=== PATIENT | male | born 1940 | race Caucasian/White ===

== ENCOUNTER → 2020-04-02 | Outpatient (CLI) | payer OTHER | END | disposition home or self-care (01) | LOC: PLD 08:57 → LAB SHORT 08:57 | DX: D22.5 Melanocytic nevi of trunk (principal) | CPT/HCPCS: 88305 ==

== ENCOUNTER 2020-11-24 09:03 | Inpatient (IN) | payer OTHER ==
[~2020-11-24] VITALS: Ht 177.8 cm; Wt 103.6 kg
[2020-11-24] MEDS ORDERED: Amaryl1 MG (09:21)
[2020-11-24] MEDS ORDERED: ENAL10 (09:21)
[2020-11-24] MEDS ORDERED: METF500 (09:21)
[2020-11-24 09:52] LABS: Alanine Aminotransfer (ALT/SGP 37 U/L (12-78); Albumin, Blood 3.7 g/dL (3.4-5.0); Albumin/Globulin Ratio 1.1 (0.8-1.8); Alk Phos 54 U/L (50-136); Anion Gap 7 mmol/L (6-16); Aspartate Aminotrans (AST/SGOT 25 U/L (12-37); BASOPHILS ABSOLUTE AUTO 0.05 K/mm3 (0.00-0.23); BASOPHILS PERCENT AUTO 1 % (0-2); Bilirubin, Total 0.5 mg/dL (0.1-1.0); Blood Urea Nitrogen 16 mg/dL (8-24); Bun/Creatinine Ratio 15.2 (12.0-20.0); CO2, Blood 23 mmol/L (21-32); Calcium, Blood 9.2 mg/dL (8.5-10.1); Chloride, Blood 108 mmol/L (98-108); Creatinine, Blood 1.05 mg/dL (0.60-1.20); EOSINOPHILS ABSOLUTE AUTO 0.06 K/mm3 (0.00-0.68); EOSINOPHILS PERCENT AUTO 1 % (0-6); Globulin, Blood 3.5 g/dL (2.2-4.0); Glomerular Filtration Rate >60 (60-); Glucose, Blood 182 mg/dL (70-99); Hematocrit 43.8 % (37.0-53.0); Hemoglobin 14.8 g/dL (13.5-17.5); IMMATURE GRAN ABSOLUTE AUTO 0.03 K/mm3 (0.00-0.10); IMMATURE GRAN PERCENT AUTO 0 % (0-1); LYMPHOCYTES ABSOLUTE AUTO 1.17 K/mm3 (0.84-5.20); LYMPHOCYTES PERCENT AUTO 12 % (21-46); MONOCYTES ABSOLUTE AUTO 0.83 K/mm3 (0.16-1.47); MONOCYTES PERCENT AUTO 9 % (4-13); Magnesium, Blood 1.2 mg/dL (1.6-2.4); Mean Corpuscular HGB 31.7 pg (26.0-34.0); Mean Corpuscular HGB Conc 33.8 g/dL (31.5-36.5); Mean Corpuscular Volume 94 fL (80-100); Mean Platelet Volume 10.9 fL (9.1-12.4); NEUTROPHILS ABSOLUTE AUTO 7.38 K/mm3 (1.96-9.15); NEUTROPHILS PERCENT AUTO 78 % (41-73); Platelet Count 140 K/mm3 (150-400); RDW Coefficient Variation 12.6 % (11.7-14.2); RDW Standard Deviation 43.5 fL (35.1-46.3); Red Blood Cell Count 4.67 M/mm3 (4.30-5.90); Sodium, Blood 138 mmol/L (136-145); Total Protein, Blood 7.2 g/dL (6.4-8.2); Troponin I <0.015 ng/mL (0.000-0.040); White Blood Cell Count 9.52 K/mm3 (4.00-11.30)
[2020-11-24 11:29] LABS: International Normalized Ratio 0.99; Prothrombin Time Results 10.7 Sec (9.7-11.5)
[2020-11-24 13:01] LABS: SARS-Cov-2 (COVID-19) PCR, MMC NEGATIVE (NEGATIVE)
[2020-11-24] MEDS ORDERED: Glimepiride4 MG PO (17:19)
[2020-11-24] MEDS ORDERED: ENAL10 PO (17:19)
[2020-11-24] MEDS ORDERED: METFORMIN HCL1000 M7 PO (17:20)
--- NOTE | 2020-11-24 18:45 | NUR ---
SHIFT SUMMARY PT IS AOX4 AND PLEASANT. NEURO CHECK NORMAL ON ADMIT AT APPROXIATELY 1550. PT IS SBA IN ROOM. PT TELE RUNNING BRADYCARDIA 48, 1ST DEGREE, & BBB PER PUBLIC RELATIONS SUPERVISOR. ECHO TO BE DONE TOMORROW. PT APPETITE IS GOOD. CBG STABLE. PT IS IN BED, CALL LIGHT IN REACH, LOW POSITION.
--- NOTE | 2020-11-25 05:41 | NUR ---
OUTBOUND SALES ADVISOR SUMMARY PT A/O X4, PLEASANT AND COOPERATIVE. PT STATES HIS DIZZNIESS HAS IMPROVED A LOT SINCE ADMISSION WHEN UP. AMBULATES WITH STANDBY ASSIST. PT DENIED HAVING DOUBLE VISION THIS SHIFT. NO SLURRED SPEECH. NO SIGNIFICANT WEAKNESS. PUPILS EQUAL AND REACTIVE TO LIGHT. VITALS STABLE. MEDICATED ONCE FOR HEADACHE OVERNIGHT. SLEPT WELL, CALL LIGHT WITHIN REACH, WILL CONTINUE TO MONITOR.
[2020-11-25 06:05] LABS: BASOPHILS ABSOLUTE AUTO 0.05 K/mm3 (0.00-0.23); BASOPHILS PERCENT AUTO 1 % (0-2); EOSINOPHILS ABSOLUTE AUTO 0.12 K/mm3 (0.00-0.68); EOSINOPHILS PERCENT AUTO 2 % (0-6); Hematocrit 40.4 % (37.0-53.0); Hemoglobin 13.7 g/dL (13.5-17.5); IMMATURE GRAN ABSOLUTE AUTO 0.02 K/mm3 (0.00-0.10); IMMATURE GRAN PERCENT AUTO 0 % (0-1); LYMPHOCYTES ABSOLUTE AUTO 1.79 K/mm3 (0.84-5.20); LYMPHOCYTES PERCENT AUTO 24 % (21-46); MONOCYTES ABSOLUTE AUTO 0.88 K/mm3 (0.16-1.47); MONOCYTES PERCENT AUTO 12 % (4-13); Mean Corpuscular HGB 31.9 pg (26.0-34.0); Mean Corpuscular HGB Conc 33.9 g/dL (31.5-36.5); Mean Corpuscular Volume 94 fL (80-100); Mean Platelet Volume 10.5 fL (9.1-12.4); NEUTROPHILS ABSOLUTE AUTO 4.57 K/mm3 (1.96-9.15); NEUTROPHILS PERCENT AUTO 62 % (41-73); Platelet Count 158 K/mm3 (150-400); RDW Coefficient Variation 12.8 % (11.7-14.2); RDW Standard Deviation 44.2 fL (35.1-46.3); Red Blood Cell Count 4.29 M/mm3 (4.30-5.90); White Blood Cell Count 7.43 K/mm3 (4.00-11.30)
[2020-11-25 06:25] LABS: Bun/Creatinine Ratio 15.4 (12.0-20.0); Calcium, Blood 8.5 mg/dL (8.5-10.1); Creatinine, Blood 1.17 mg/dL (0.60-1.20); Potassium, Blood 4.6 mmol/L (3.5-5.5)
[2020-11-25 14:05] LABS: Appearance, Urine Clear (Clear); Bilirubin, Urine Neg (Neg); Blood, Urine Neg (Neg); Color, Urine Yellow (P-Yellow); Glucose Qualitative, Urine Neg (Neg); Ketones, Urine Neg (Neg); Leukocyte Esterase, Urine Neg (Neg); Nitrite, Urine Neg (Neg); Protein, Urine Neg (Neg); Urobilinogen, Urine NORM (Normal)
[2020-11-25 17:52] LABS: SARS-Cov-2 (COVID-19) PCR, MMC NEGATIVE (NEGATIVE)
--- NOTE | 2020-11-26 11:27 | NUR ---
FOLLOWED PT FROM PROCEDURE TO RECOVERY ROOM. PT WITHOUT COMPLAINTS.
--- NOTE | 2020-11-26 12:42 | NUR ---
PT C/O 3/10 UPPER R CHEST INCISION PAIN. TYLENOL 975MG PO GIVEN.
[2020-11-26] MEDS ORDERED: Acetaminophen650 M1 PO (17:25)
[2020-11-26] MEDS ORDERED: ASPI81CH PO (17:25)
[2020-11-26] MEDS ORDERED: CLIN150 PO (17:27)
[2020-11-26] MEDS ORDERED: FAMO20 PO (17:28)
--- NOTE | 2020-11-26 17:56 | NUR ---
SHIFT SUMMARY PATIENT IS ALERT AND ORIENTED X4. PLEASANT AND COOPERATIVE WITH CARE. PATIENT HAD PACEMAKER PLACED AT 1000. PATIENT RETURNED AT 1300 WITH SUCCESSFUL PLACEMENT OF PACEMAKER WITH NO COMPLICATIONS. NO ACUTE EVENTS DURING SHIFT. PATIENT IS CURRENTLY AWAITING TO COME PICK PATIENT UP.
--- NOTE | 2020-11-26 20:15 | NUR ---
PT DC home with after pacemaker placement. Wearing rt arm sling to limit activity.
== END 2020-11-26 19:20 | disposition home or self-care (01) | DRG 244 ==
LOC: ER 09:03 → ERHOLD 09:04 → MEDS 09:04 → ERHOLD 09:04 → ER 09:04 → MEDS 15:37 → ERHOLD 15:37 → MEDS 18:36 → ERHOLD 11-25 15:19 → MEDS 11-25 15:19
PROVIDERS: Internal Medicine Cardiovascular Disease; Student in an Organized Health Care Education/Training Program; ADMIT Internal Medicine
PROC: 0JH606Z Insertion of Pacemaker, Dual Chamber into Chest Subcutaneous Tissue and Fascia, Open Approach (ICD-10-PCS; principal; 2020-11-26)
PROC: 02H63JZ Insertion of Pacemaker Lead into Right Atrium, Percutaneous Approach (ICD-10-PCS; 2020-11-26)
PROC: 02HK3JZ Insertion of Pacemaker Lead into Right Ventricle, Percutaneous Approach (ICD-10-PCS; 2020-11-26)
DX: R00.1 Bradycardia, unspecified (principal); Z20.822 Contact with and (suspected) exposure to COVID-19; I44.0 Atrioventricular block, first degree; I10 Essential (primary) hypertension; E83.42 Hypomagnesemia; E11.40 Type 2 diabetes mellitus with diabetic neuropathy, unspecified; Z88.5 Allergy status to narcotic agent; Z79.84 Long term (current) use of oral hypoglycemic drugs; Z88.0 Allergy status to penicillin; Z85.46 Personal history of malignant neoplasm of prostate; Z85.038 Personal history of other malignant neoplasm of large intestine; Z90.49 Acquired absence of other specified parts of digestive tract; Z92.3 Personal history of irradiation; Z79.899 Other long term (current) drug therapy
CPT/HCPCS: 33208; 36415; 70450; 70496; 70498; 70551; 71046; 76937; 80048; 80053; 81003; 82947; 83036; 83735; 84439; 84443; 84484; 85025; 85610; 93005; 93010; 93306; 96365-59; 96366-59; 96372; 96375-59; 97110; 97116; 97162; 97530; 99152; 99153; 99285-25; A9270; C1781; C1785; C1894; C1898; G0378; J1644; J1650; J2250; J2765; J3010; J3370; J3475; J7030; J7040; J7050; Q9967; U0004

== ENCOUNTER 2021-06-30 07:44 | Day surgery (SDC) | payer OTHER ==
[~2021-06-30 07:44] MED LIST: AMARYL PO; ASPI81CH PO; Acetaminophen650 M1 PO; Amaryl1 MG; CLIN150 PO; ENAL10; ENAL10 PO; FAMO20 PO; Glimepiride4 MG PO; METF500; METF500 PO; METFORMIN HCL1000 M7 PO
--- NOTE | 2021-06-30 08:32 | NUR ---
Ambulatory in Day Surgery History, Chart, Medications and Allergies reviewed before start of procedure. Patient confirms NPO status and agrees with scheduled surgery. Patient States Post-Procedure ride home has been arranged. Pre-Op teaching done. Pt verbalizes understanding.
[2021-06-30] MEDS ORDERED: ACET500 PO (08:46)
--- NOTE | 2021-06-30 09:12 | NUR ---
06/30/21 0912 [facility] [place] History, Chart, Medications and Allergies reviewed before start of procedure. Patient confirms NPO status and agrees with scheduled surgery. 3-LEAD EKG REVIEWED WITH PHYSICIAN PRIOR TO START OF PROCEDURE. MONITOR INTACT WITH CONTINUOUS PULSE OXIMETRY AND INTERMITTENT BP. PATIENT DETERMINED TO BE ASA APPROPRIATE FOR PROPOFOL SEDATION PRIOR TO START OF PROCEDURE BY
--- NOTE | 2021-06-30 10:03 | NUR ---
Patient up to Ambulate independently. Gait steady. Discharge instructions reviewed with patient. Patient verbalizes understanding. Copy given to patient to take home. Discharged via wheelchair to private car for ride home.
== END 2021-06-30 10:05 | disposition home or self-care (01) ==
LOC: ORSCMMR 07:44 → ORD 08:30 → ORSCMMR 10:05
PROVIDERS: Internal Medicine Gastroenterology
PROC: 0DBB8ZX Excision of Ileum, Via Natural or Artificial Opening Endoscopic, Diagnostic (ICD-10-PCS; principal; 2021-06-30 08:30)
PROC: 0DBL8ZX Excision of Transverse Colon, Via Natural or Artificial Opening Endoscopic, Diagnostic (ICD-10-PCS; principal; 2021-06-30 08:30)
PROC: 0DBN8ZX Excision of Sigmoid Colon, Via Natural or Artificial Opening Endoscopic, Diagnostic (ICD-10-PCS; principal; 2021-06-30 08:30)
DX: R19.7 Diarrhea, unspecified (principal); Z85.038 Personal history of other malignant neoplasm of large intestine; K62.5 Hemorrhage of anus and rectum; E11.9 Type 2 diabetes mellitus without complications; I10 Essential (primary) hypertension; Z95.0 Presence of cardiac pacemaker; Z79.84 Long term (current) use of oral hypoglycemic drugs; Z79.899 Other long term (current) drug therapy
CPT/HCPCS: 82947; 88305; J2704; J7120

== ENCOUNTER → 2021-07-14 | Outpatient (CLI) | payer OTHER ==
[~2021-07-14] MED LIST changes: +ACET500 PO
== END | disposition home or self-care (01) ==
LOC: LAB 08:01 → LAB SHORT 08:01 → PLD 08:01
DX: D48.5 Neoplasm of uncertain behavior of skin (principal)
CPT/HCPCS: 88305

== ENCOUNTER 2021-10-27 19:05 | Emergency (ER) | payer OTHER ==
[~2021-10-27] VITALS: Ht 175.3 cm; Wt 103.0 kg
[2021-10-27] MEDS ORDERED: ASPI81CH (19:31)
[2021-10-27 19:54] LABS: BASOPHILS ABSOLUTE AUTO 0.05 K/mm3 (0.00-0.23); BASOPHILS PERCENT AUTO 1 % (0-2); EOSINOPHILS ABSOLUTE AUTO 0.13 K/mm3 (0.00-0.68); EOSINOPHILS PERCENT AUTO 1 % (0-6); Hematocrit 38.6 % (37.0-53.0); Hemoglobin 13.4 g/dL (13.5-17.5); IMMATURE GRAN ABSOLUTE AUTO 0.03 K/mm3 (0.00-0.10); IMMATURE GRAN PERCENT AUTO 0 % (0-1); LYMPHOCYTES ABSOLUTE AUTO 1.86 K/mm3 (0.84-5.20); LYMPHOCYTES PERCENT AUTO 20 % (21-46); MONOCYTES ABSOLUTE AUTO 0.95 K/mm3 (0.16-1.47); MONOCYTES PERCENT AUTO 10 % (4-13); Mean Corpuscular HGB 31.2 pg (26.0-34.0); Mean Corpuscular HGB Conc 34.7 g/dL (31.5-36.5); Mean Corpuscular Volume 90 fL (80-100); Mean Platelet Volume 9.7 fL (9.1-12.4); NEUTROPHILS PERCENT AUTO 68 % (41-73); Platelet Count 191 K/mm3 (150-400); RDW Coefficient Variation 13.8 % (11.7-14.2); RDW Standard Deviation 45.2 fL (35.1-46.3); White Blood Cell Count 9.32 K/mm3 (4.00-11.30)
[2021-10-27 20:20] LABS: Albumin, Blood 3.3 g/dL (3.4-5.0); Bilirubin, Total 0.9 mg/dL (0.1-1.0); Calcium, Blood 9.5 mg/dL (8.5-10.1); Globulin, Blood 3.4 g/dL (2.2-4.0); Magnesium, Blood 1.4 mg/dL (1.6-2.4); Potassium, Blood 4.6 mmol/L (3.5-5.5); Total Protein, Blood 6.7 g/dL (6.4-8.2)
== END 2021-10-27 23:30 | disposition home or self-care (01) ==
LOC: ER 19:05
PROVIDERS: Emergency Medicine
DX: R19.03 Right lower quadrant abdominal swelling, mass and lump (principal); R10.31 Right lower quadrant pain; R10.32 Left lower quadrant pain; E11.9 Type 2 diabetes mellitus without complications; Z95.0 Presence of cardiac pacemaker; Z79.84 Long term (current) use of oral hypoglycemic drugs; Z79.82 Long term (current) use of aspirin; Z79.899 Other long term (current) drug therapy
CPT/HCPCS: 36415; 74177; 80053; 83735; 85025; Q9967

== ENCOUNTER → 2023-08-05 | Outpatient (CLI) | payer OTHER ==
[~2023-08-05] MED LIST changes: +ASPI81CH; +ONDA4ODT; +SEMGLEE (Y100 UNIT/2 SC; +ZOLP10 PO
[2023-08-06 15:29] LABS: Adenovirus F 40/41 Not Detected (NOT DETECT); Astrovirus Not Detected (NOT DETECT); Campylobacter Sp Not Detected (NOT DETECT); Cryptosporidium Not Detected (NOT DETECT); Cyclospora Cayetanensis Not Detected (NOT DETECT); E. Coli O157 Not Detected (NOT DETECT); Entamoeba Histolytica Not Detected (NOT DETECT); Enteroaggregative E. coli-EAEC Not Detected (NOT DETECT); Enteropathogenic E. coli-EPEC Not Detected (NOT DETECT); Enterotoxigenic E. coli-ETEC Not Detected (NOT DETECT); Giardia Lamblia Not Detected (NOT DETECT); Norovirus GI/GII Not Detected (NOT DETECT); Plesiomonas Shigelloides Not Detected (NOT DETECT); Rotavirus A Not Detected (NOT DETECT); Salmonella Sp Not Detected (NOT DETECT); Sapovirus Not Detected (NOT DETECT); Shiga Toxin-prod E. coli-STEC Not Detected (NOT DETECT); Shigella/Enteroin E. coli-EIEC Not Detected (NOT DETECT); Vibrio Cholerae Not Detected (NOT DETECT); Vibrio Sp Not Detected (NOT DETECT); Yersinia Enterocolitica Not Detected (NOT DETECT)
== END ==
LOC: LAB SHORT 16:00 → LAB 16:00 → LAB FUT 08-03 14:45 → EDSTATUS 08-03 14:45
DX: R19.7 Diarrhea, unspecified (principal)
CPT/HCPCS: 87507

== ENCOUNTER 2023-10-23 20:58 | Emergency (ER) | payer OTHER ==
[~2023-10-23] VITALS: Ht 177.8 cm; Wt 95.2 kg
[~2023-10-23 20:58] MED LIST changes: +ALBU2.5V5 INH; +ENOX40I SC; +FLUC200 PO; +GUAI600T33 PO; +Guaifenesin Wit10 ML PO; +HUMULIN R100 UNIT/2 SC; +JUVEN PACKET1 EAC3 PO; +LIQUACEL PO; +MIRALAX17 GM PO; +OMEP20ER PO; +OXYC5 PO; +Prednisone10 MG PO; +TAMS.4ER PO; +Tessalon200 MG PO; +VISBIOME 112.51 EACH PO
[2023-10-23 21:15] LABS: BASOPHILS ABSOLUTE AUTO 0.07 K/mm3 (0.00-0.23); BASOPHILS PERCENT AUTO 1 % (0-2); EOSINOPHILS PERCENT AUTO 0 % (0-6); Hematocrit 33.8 % (37.0-53.0); Hemoglobin 10.4 g/dL (13.5-17.5); IMMATURE GRAN ABSOLUTE AUTO 0.22 K/mm3 (0.00-0.10); IMMATURE GRAN PERCENT AUTO 2 % (0-1); LYMPHOCYTES ABSOLUTE AUTO 1.45 K/mm3 (0.84-5.20); LYMPHOCYTES PERCENT AUTO 15 % (21-46); MONOCYTES PERCENT AUTO 15 % (4-13); Mean Corpuscular HGB 28.1 pg (26.0-34.0); Mean Corpuscular HGB Conc 30.8 g/dL (31.5-36.5); Mean Corpuscular Volume 91 fL (80-100); NEUTROPHILS ABSOLUTE AUTO 6.45 K/mm3 (1.96-9.15); NEUTROPHILS PERCENT AUTO 67 % (41-73); Platelet Count 227 K/mm3 (150-400); RDW Standard Deviation 57.4 fL (35.1-46.3); White Blood Cell Count 9.59 K/mm3 (4.00-11.30)
[2023-10-23 21:28] LABS: Albumin, Blood 2.2 g/dL (3.4-5.0); Albumin/Globulin Ratio 0.6 (0.8-1.8); Bilirubin, Total 0.4 mg/dL (0.1-1.0); Bun/Creatinine Ratio 10.3 (12.0-20.0); Calcium, Blood 8.3 mg/dL (8.5-10.1); Creatinine, Blood 0.68 mg/dL (0.60-1.20); Globulin, Blood 3.4 g/dL (2.2-4.0); Potassium, Blood 3.8 mmol/L (3.5-5.5); Total Protein, Blood 5.6 g/dL (6.4-8.2)
[2023-10-23] MEDS ORDERED: NS 1,000 ML IV SCH (21:35)
[2023-10-23] MEDS ORDERED: Acetaminophen 500 MG Tab PO ONE ×2 (22:20→23:00)
[2023-10-23] MEDS ORDERED: Ketorolac Tromethamine 30mg Vial IV ONE (23:00)
[2023-10-23 23:27] LABS: Source, Urine Clean Catch
[2023-10-23 23:47] LABS: Bilirubin, Urine Neg (Neg); Blood, Urine Neg (Neg); Glucose Qualitative, Urine Neg (Neg); Ketones, Urine Neg (Neg); Leukocyte Esterase, Urine Neg (Neg); Nitrite, Urine Neg (Neg); Protein, Urine Neg (Neg); Specific Gravity, Urine 1.015 (1.003-1.022); Urobilinogen, Urine NORM (Normal)
[2023-10-23 23:53] LABS: Appearance, Urine Clear (Clear); Color, Urine Pale Yellow (P-Yellow)
[2023-10-24 00:45] VITALS: BP 103/66
== END 2023-10-24 00:55 | disposition home or self-care (01) ==
LOC: ER 20:58
PROVIDERS: Student in an Organized Health Care Education/Training Program
DX: E11.649 Type 2 diabetes mellitus with hypoglycemia without coma (principal); I10 Essential (primary) hypertension; E11.40 Type 2 diabetes mellitus with diabetic neuropathy, unspecified; K21.9 Gastro-esophageal reflux disease without esophagitis; N40.0 Benign prostatic hyperplasia without lower urinary tract symptoms; Z88.0 Allergy status to penicillin; Z88.5 Allergy status to narcotic agent; Z79.4 Long term (current) use of insulin; Z79.899 Other long term (current) drug therapy; Z66 Do not resuscitate; Z95.0 Presence of cardiac pacemaker
CPT/HCPCS: 51798; 71046; 80053; 81003; 82947; 85025; 93005; 93010; 96361; 96374; 99285-25; A9270; J1885; J7030

== ENCOUNTER 2024-01-09 20:31 | Inpatient (IN) | payer OTHER ==
[~2024-01-09] VITALS: Ht 177.8 cm; Wt 75.5 kg
[2024-01-09 21:07] LABS: BASOPHILS ABSOLUTE AUTO 0.06 K/mm3 (0.00-0.23); BASOPHILS PERCENT AUTO 1 % (0-2); EOSINOPHILS ABSOLUTE AUTO 0.03 K/mm3 (0.00-0.68); EOSINOPHILS PERCENT AUTO 0 % (0-6); Hematocrit 35.4 % (37.0-53.0); Hemoglobin 11.7 g/dL (13.5-17.5); IMMATURE GRAN ABSOLUTE AUTO 0.26 K/mm3 (0.00-0.10); IMMATURE GRAN PERCENT AUTO 2 % (0-1); LYMPHOCYTES PERCENT AUTO 14 % (21-46); MONOCYTES ABSOLUTE AUTO 1.57 K/mm3 (0.16-1.47); MONOCYTES PERCENT AUTO 14 % (4-13); Mean Corpuscular HGB 27.7 pg (26.0-34.0); Mean Corpuscular HGB Conc 33.1 g/dL (31.5-36.5); Mean Corpuscular Volume 84 fL (80-100); Mean Platelet Volume 8.9 fL (9.1-12.4); NEUTROPHILS ABSOLUTE AUTO 7.56 K/mm3 (1.96-9.15); NEUTROPHILS PERCENT AUTO 68 % (41-73); Platelet Count 232 K/mm3 (150-400); RDW Coefficient Variation 15.9 % (11.7-14.2); RDW Standard Deviation 48.6 fL (35.1-46.3); Red Blood Cell Count 4.23 M/mm3 (4.30-5.90); White Blood Cell Count 11.08 K/mm3 (4.00-11.30)
[2024-01-09 21:19] LABS: Albumin, Blood 2.3 g/dL (3.4-5.0); Albumin/Globulin Ratio 0.5 (0.8-1.8); Bilirubin, Total 0.6 mg/dL (0.1-1.0); Bun/Creatinine Ratio 18.4 (12.0-20.0); Calcium, Blood 9.4 mg/dL (8.5-10.1); Creatinine, Blood 0.71 mg/dL (0.60-1.20); Globulin, Blood 4.3 g/dL (2.2-4.0); Potassium, Blood 4.2 mmol/L (3.5-5.5); Total Protein, Blood 6.6 g/dL (6.4-8.2)
[2024-01-09 21:55] LABS: Magnesium, Blood 1.6 mg/dL (1.6-2.4); Phosphorus, Blood 2.6 mg/dL (2.5-4.9)
[2024-01-09] MEDS ORDERED: Cefepime HCl 2,000 MG in NS 100 ML IV ONE (22:00)
[2024-01-09] MEDS ORDERED: Lactated Ringer's 1,000 ML IV SCH (22:00)
[2024-01-09] MEDS ORDERED: Vancomycin HCL 1,500 MG in NS 250 ML IV ONE (22:10)
[2024-01-09 22:45] LABS: Influenza A, PCR NEGATIVE (NEGATIVE); Influenza B, PCR NEGATIVE (NEGATIVE); Resp Syncytial Virus, PCR NEGATIVE (NEGATIVE)
[2024-01-09 23:36] LABS: SARS-Cov-2 (COVID-19) PCR, MMC POSITIVE (NEGATIVE)
[2024-01-09] MEDS ORDERED: ENULOSE10 GM/156 PO (23:42)
[2024-01-09] MEDS ORDERED: TRAM50 PO (23:42)
[2024-01-10 01:15] LABS: Source, Urine Clean Catch
[2024-01-10 01:17] LABS: Bilirubin, Urine Neg (Neg); Blood, Urine Neg (Neg); Glucose Qualitative, Urine Neg (Neg); Ketones, Urine Neg (Neg); Leukocyte Esterase, Urine Neg (Neg); Nitrite, Urine Neg (Neg); Protein, Urine Neg (Neg); Urobilinogen, Urine NORM (Normal)
[2024-01-10 01:19] LABS: Appearance, Urine Clear (Clear); Color, Urine Yellow (P-Yellow)
[2024-01-10] MEDS ORDERED: FLU VACC TS2024-25(6MOS UP)/PF 45 MCG/0.5 ML SYRINGE IM ONE (05:35)
[2024-01-10] MEDS ORDERED: Remdesivir (EUA) 200 MG in NS 250 ML IV ONE ×2 (05:50→10:00)
[2024-01-10] MEDS ORDERED: NS 1,000 ML IV SCH (06:00)
[2024-01-10] MEDS ORDERED: MethylPREDNISolone Sod Succ 125 MG Vial IV SCH (06:00)
[2024-01-10] MEDS ORDERED: OxyCODONE HCL 5 MG TAB PO PRN (07:20)
[2024-01-10] MEDS ORDERED: Sennosides 8.6 MG Tab PO PRN (07:20)
[2024-01-10] MEDS ORDERED: Polyethylene Glycol 3350 17 gm PO PRN (07:20)
[2024-01-10] MEDS ORDERED: TraZODone HCl 50 MG Tab PO PRN (07:20)
[2024-01-10] MEDS ORDERED: Ondansetron 4 MG SoluTab MM PRN (07:20)
[2024-01-10 07:21] LABS: Base Excess Venous 2.6 mmol/L; Bicarbonate Venous 26.7 mmol/L (24.0-30.0)
[2024-01-10 07:22] LABS: PCO2 Venous 36.5 mmHg (38-42); pH Blood Venous 7.47 (7.34-7.37)
[2024-01-10] MEDS ORDERED: Acetaminophen 325 MG TABLET PO PRN (07:25)
[2024-01-10] MEDS ORDERED: Ipratropium/Albuterol SulF 2.5-0.5MG/3 ML Amp INH PRN (07:25)
[2024-01-10] MEDS ORDERED: Insulin Human Lispro 100 Units/ML 3ML Syringe SC SCH (07:30)
[2024-01-10 07:47] LABS: Hematocrit 31.7 % (37.0-53.0); Hemoglobin 10.3 g/dL (13.5-17.5); Mean Corpuscular HGB 27.8 pg (26.0-34.0); Mean Corpuscular HGB Conc 32.5 g/dL (31.5-36.5); Mean Corpuscular Volume 86 fL (80-100); Mean Platelet Volume 8.9 fL (9.1-12.4); Platelet Count 221 K/mm3 (150-400); RDW Standard Deviation 50.6 fL (35.1-46.3); White Blood Cell Count 8.75 K/mm3 (4.00-11.30)
[2024-01-10] MEDS ORDERED: Cefepime HCl 2,000 MG in NS 100 ML IV SCH (08:00)
[2024-01-10 08:02] LABS: Albumin, Blood 1.9 g/dL (3.4-5.0); Albumin/Globulin Ratio 0.5 (0.8-1.8); Bilirubin, Total 0.6 mg/dL (0.1-1.0); Bun/Creatinine Ratio 13.4 (12.0-20.0); Creatinine, Blood 0.75 mg/dL (0.60-1.20); Globulin, Blood 3.8 g/dL (2.2-4.0); Total Protein, Blood 5.7 g/dL (6.4-8.2)
[2024-01-10 08:15] LABS: BAND PERCENT MAN 2 % (0-8); BASOPHILS PERCENT MAN 0 % (0-2); EOSINOPHILS PERCENT MAN 0 % (0-6); LYMPHOCYTES ABSOLUTE MAN 0.78 K/mm3 (0.84-5.20); LYMPHOCYTES PERCENT MAN 9 % (21-46); METAMYELOCYTE ABSOLUTE MAN 0.08 K/mm3 (0.00-0.00); METAMYELOCYTE PERCENT MAN 1 % (0-0); MONOCYTES ABSOLUTE MAN 0.35 K/mm3 (0.16-1.47); MONOCYTES PERCENT MAN 4 % (4-13); MYELOCYTE ABSOLUTE MAN 0.08 K/mm3 (0.00-0.00); MYELOCYTE PERCENT MAN 1 % (0-0); NEUTROPHILS ABSOLUTE MAN 7.43 K/mm3 (1.96-9.15); SEG NEUTROPHILS PERCENT MAN 83 % (41-73); TOTAL CELLS COUNTED 100
[2024-01-10] MEDS ORDERED: NS 1,000 ML IV ONE (08:19)
[2024-01-10] MEDS ORDERED: Insulin Glargine-Yfgn 100 Unit/mL 3 ML SYR SC SCH (09:00)
[2024-01-10 11:37] VITALS: BP 125/80
[2024-01-10] MEDS ORDERED: Vancomycin HCL 1,000 MG in NS 250 ML IV SCH (12:00)
[2024-01-10] MEDS ORDERED: Insulin Regular 100 UNIT/ML 10ML Vial SC SCH (12:00)
[2024-01-10] MEDS ORDERED: HYDROmorphone HCl 2 MG Tab PO PRN (12:35)
[2024-01-10] MEDS ORDERED: OxyCODONE 5 mg/Acetamin 325 mg TABLET PO PRN (12:35)
--- NOTE | 2024-01-10 13:18 | NUR ---
ADMIT TO PCU 11: PATIENT ADMIT AT 1134. UP WITH 1 PERSON ASSIST TO BED. WEAK ON FEET. BED ALARM IN PLACE. ABLE TO MOVE ALL EXTREMITIES AND FOLLOW ALL COMMANDS. ALERT AND ORIENTED. NAVI UPDATED ON ADMIT AND MED REC COMPLETED WITH . PATIENT COMPLAINS OF NECK AND LOWER BACK PAIN. MEDICATED PER EMAR WITH TYLENOL. DENIES NUMBNESS/TINGLING. ON ROOM AIR, LUNGS SOUNDS CLEAR AND DIMINISHED IN BASES. PATIENT STATES HIS COUGH AND BREATHING FEELS IMPROVED FROM INITIAL ARRIVAL TO ED. TELE SHOWING SR. DENIES CHEST PAIN/PRESSURE/PALPITATIONS. NO EDEMA NOTED. ECHO IN PROGRESS AT THIS TIME. IV FLUIDS AND ABX INFUSING PER EMAR. BOWEL TONES PRESENT. PATIENT DENIES ABDOMINAL PAIN/NAUSEA. DENIES SWALLOWING ISSUES. DIET IN PLACE. ACHS BLOOD SUGARS. GRAY CATH IN PLACE FROM ED DRAINING CLEAR YELLOW URINE. RIGHT ELBOW SCAB, PATIENT STATES FROM HITTING HIS ELBOW DURING A CT SCAN. ORIENTED TO ROOM AND UNIT. CALL LIGHT IN REACH. DENIES NEEDS.
[2024-01-10 16:05] VITALS: BP 101/58
--- NOTE | 2024-01-10 17:47 | NUR ---
NO ACUTE CHANGES. VITAL SIGNS STABLE. PATIENT REMAINS ON ROOM AIR. TELE CONTINUES TO SHOW SR. IV ABX AND IV FLUIDS INFUSED PER EMAR. SALINE LOCKED AT THIS TIME. GRAY CATH REMOVED. ECHO COMPLETED THIS SHIFT. PHYSICAL THERAPY IN TO WORK WITH PATIENT. PATIENT TALKING WITH ON PHONE AND EATING DINNER AT THIS TIME. CALL LIGHT IN REACH. BED ALARM IN PLACE. DENIES NEEDS.
[2024-01-10 20:29] VITALS: BP 126/79
--- NOTE | 2024-01-10 20:45 | NUR ---
ASSUMED CARE PT IS NOT COOPERATING W/ CARE AT THIS TIME. ATTEMPTING TO TAKE VITALS RESULTS IN PT BECOMING AGITATED AND PULLING ON BP CUFF/SPO2 PROBE; WHEN ATTEMPTING TO ASSESS PUPILS PT WOKE AND STATED "NO MORE TEST'S" WHEN ASKED IF PT KNEW WHERE HE WAS PT STATED "I'M IN YOUR SICK DREAM" AND IS UNABLE TO BE REORIENTED AT THIS TIME. PT'S CALLED IN ATTEMPT TO COMFORT/TALK TO PT, BUT PT JUST REMAINS SILENT. RESIDENT CALLED AND TO COME AND LAY EYES ON PT. VSS AT THIS TIME.
--- NOTE | 2024-01-10 21:31 | NUR ---
UPDATE RESIDENT WAS CALLED FOR CBG >350. PT REFUSES SCD'S.
[2024-01-10 22:39] LABS: Base Excess Venous 2.2 mmol/L; Bicarbonate Venous 25.4 mmol/L (24.0-30.0); PCO2 Venous 42.4 mmHg (38-42); pH Blood Venous 7.41 (7.34-7.37)
[2024-01-10 22:47] VITALS: BP 137/85
[2024-01-10] MEDS ORDERED: NS 250 ML IV PRN (23:15)
[2024-01-11] VITALS (8 sets, daily range): BP systolic 99–131; BP diastolic 58–75
[2024-01-11 04:01] LABS: Hematocrit 29.3 % (37.0-53.0); Hemoglobin 9.5 g/dL (13.5-17.5); Mean Corpuscular HGB 27.6 pg (26.0-34.0); Mean Corpuscular HGB Conc 32.4 g/dL (31.5-36.5); Mean Corpuscular Volume 85 fL (80-100); Mean Platelet Volume 8.9 fL (9.1-12.4); Platelet Count 210 K/mm3 (150-400); RDW Standard Deviation 50.4 fL (35.1-46.3); Red Blood Cell Count 3.44 M/mm3 (4.30-5.90); White Blood Cell Count 10.22 K/mm3 (4.00-11.30)
[2024-01-11 04:25] LABS: BAND PERCENT MAN 13 % (0-8); BASOPHILS PERCENT MAN 0 % (0-2); EOSINOPHILS PERCENT MAN 0 % (0-6); LYMPHOCYTES ABSOLUTE MAN 1.02 K/mm3 (0.84-5.20); LYMPHOCYTES PERCENT MAN 10 % (21-46); MONOCYTES ABSOLUTE MAN 1.22 K/mm3 (0.16-1.47); MONOCYTES PERCENT MAN 12 % (4-13); NEUTROPHILS ABSOLUTE MAN 7.97 K/mm3 (1.96-9.15); SEG NEUTROPHILS PERCENT MAN 65 % (41-73); TOTAL CELLS COUNTED 100
[2024-01-11 04:27] LABS: Magnesium, Blood 1.8 mg/dL (1.6-2.4)
[2024-01-11 04:28] LABS: Albumin, Blood 1.8 g/dL (3.4-5.0); Albumin/Globulin Ratio 0.5 (0.8-1.8); Bilirubin, Total 0.3 mg/dL (0.1-1.0); Bun/Creatinine Ratio 26.4 (12.0-20.0); Calcium, Blood 9.1 mg/dL (8.5-10.1); Creatinine, Blood 0.76 mg/dL (0.60-1.20); Globulin, Blood 3.9 g/dL (2.2-4.0); Potassium, Blood 3.9 mmol/L (3.5-5.5); Total Protein, Blood 5.7 g/dL (6.4-8.2)
--- NOTE | 2024-01-11 06:27 | NUR ---
SHIFT SUMMARY NO ACUTE EVENTS SINCE LAST NOTE, PT ALERT AND ORIENTED TO SELF, BUT EASILY REORIENTABLE. ABLE TO MAKE NEEDS KNOWN AND FOLLOWS COMMANDS APPROPRIATELY AT THIS TIME. COOPERATIVE W/ CARE. MAP >65; SPO2 >92% ON 2LNC, 2LNC PLACED D/T DESATTING WHILE SLEEPING. NO REPEAT OF NEURO CHANGE AT START OF SHIFT (SEE PREVIOUS NOTE).
[2024-01-11] MEDS ORDERED: Enoxaparin 40 MG/0.4 ML SYR SC SCH (09:00)
--- NOTE | 2024-01-11 11:46 | NUR ---
CARE NOTE THIS RN CALLED DR. TONY TO NOTIFY THAT CBG AT 1100 CBG CHECKS WAS 418, THIS RN TREATED ELEVATED CBG PER EMAR ORDERS. PT APPEARS CONFUSED BUT THIS IS NOT UNCHANGED FROM THIS AM NEURO ASSESSMENT. VSS. NYLON MACHINE OPERATOR KENNA GARCIA ALSO AWARE OF ELEVATED CBG, WILL CONTINUE TO MONITOR AND TREAT APPROPRIATELY PER ORDERS/PROTOCOL.
[2024-01-11] MEDS ORDERED: Remdesivir (EUA) 100 MG in NS 250 ML IV SCH (12:00)
[2024-01-11 12:44] LABS: Vancomycin, Trough 15.6 ug/mL (5.0-10.0)
[2024-01-11] MEDS ORDERED: Polyethylene Glycol 3350 17 gm PO PRN (12:45)
[2024-01-11 13:48] LABS: Glucose, Blood 476 mg/dL (70-99)
[2024-01-11] MEDS ORDERED: Insulin Human Lispro 100 Units/ML 3ML Syringe SC ONE ×3 (14:00→17:00)
--- NOTE | 2024-01-11 14:48 | NUR ---
CARE NOTE AT APPROX. 1246 THIS RN WAS MADE AWARE THAT CBG WAS >500. LABS REQUESTED AND DRAWN , DR. TONY MADE AWARE OF INCREASE IN CBG AND THIS RN PROVIDED INSULIN COVERAGE PER ORDERS. WILL CONTINUE TO MONITOR AND TREAT PER PROTOCOL/ORDERS.
[2024-01-11] MEDS ORDERED: Insulin Glargine-Yfgn 100 Unit/mL 3 ML SYR SC SCH ×2 (17:20→21:00)
--- NOTE | 2024-01-11 17:35 | NUR ---
Met with pt and his . Pt is pleasantly confused. His came to my office to discuss pt's code status, and after discussion, the patient's code status was changed to DNR. Pt's did not appear to realize the patient has Lymphoma diagnosis. Discussed this further with hospitalist, and plan to address with tomorrow.
--- NOTE | 2024-01-11 18:41 | NUR ---
SHIFT SUMMARY PT WAS DISORIENTED THIS AM TO SELF BUT LATER ON APPEARED ORIENTED TO SELF, PLACE, SITUATION AND FAMILY. HE WAS ABLE TO MAKE HIS NEEDS KNOWN. HE WAS CONFUSED ON AND OFF T/O SHIFT. VSS. CBG NOTED TO BE ELEVATED DURING SHIFT, DR. TONY MADE AWARE, PLEASE SEE EMAR FOR ELEVATED BLOOD GLUCOSE INTERVENTIONS AND LABS FOR REASSESSMENTS. SPO2 MAINTAINED >95% VIA RA WHILE AWAKE. HE DENIED FEELINGS OF CHEST PAIN/PRESSURE, LIGHTHEADEDNESS/DIZZINESS OR NAUSEA/VOMITTING. HE HAD GOOD PO INTAKE. HE VOIDED USING BEDSIDE URINAL. THIS RN PROVIDED WOUND CARE ON COCCYX, PLEASE SEE CHART FOR PHOTOTS. HIS KRYS CAME TO BEDSIDE DURING SHFIT. PT WORKED W/ PHYSICAL THERAPY DURING SHIFT AND AMBULATED IN [place] AND SAT UP IN CHAIR FOR DINNER. HE REPORTED A BURNING SENSATION WHEN HE VOIDED, HE WAS NOTED TO HAVE A STRAIGHT CATHETER PLACED LAST NOC SHIFT. HR NOTED TO BE PACED IN 60-90'S PER TELE MONITORING BUT HR NOTED TO INCREASE TO 130 WHEN HE AMBULATED. OCCASIONAL COUGH NOTED W/ THICK GREEN SPUTUM. CALL LIGHT IS W/ IN REACH.
--- NOTE | 2024-01-11 20:20 | NUR ---
ASSUMPTION OF CARE PT LYING IN BED. ALERT AND ORIENTED X 4 BUT MILDLY CONFUSED. AFEBRILE. HR AND BP STABLE. REPORTS OF INCREAESED HR WITH ACTIVITY THAT RESOLVED WITH REST. O2 SAT IN THE 90S ON RA. PRODUCTIVE COUGH- YELLOW SPUTUM. ANTIBIOTICS WILL BE CONTINUED. PT DENIES CHEST PAIN AND SOB. NO ABDOMINAL PAIN AND NAUSEA. PT EXPERIENCING SOME URGE INCONTINENCE. USES CALL LIGHT APPROPRIATELY BUT IT IS OFTEN TOO LATE. PT INQUIRED ABOUT OTHER OPTIONS. RED AREA ON COCCYX COVERED WITH FOAM DRESSING. PT LEFT WITH CALL LIGHT NEARBY.
[2024-01-11] MEDS ORDERED: Docusate Sodium/Senna 1 Tab PO SCH (21:00)
[2024-01-12] VITALS: BP 124/60
[2024-01-12] MEDS ORDERED: Diabetic GuaiFENesin 100 MG/5 ML 5MLUDC PO PRN (00:55)
[2024-01-12] MEDS ORDERED: Guaifenesin/Dextromethorphan Syrup 5 ML UDC PO PRN (01:50)
[2024-01-12 03:17] VITALS: BP 97/66
[2024-01-12 03:53] LABS: Hemoglobin 9.4 g/dL (13.5-17.5); Mean Corpuscular HGB 27.5 pg (26.0-34.0); Mean Corpuscular HGB Conc 32.4 g/dL (31.5-36.5); Mean Corpuscular Volume 85 fL (80-100); Mean Platelet Volume 9.5 fL (9.1-12.4); Platelet Count 265 K/mm3 (150-400); RDW Coefficient Variation 16.3 % (11.7-14.2); RDW Standard Deviation 50.4 fL (35.1-46.3); Red Blood Cell Count 3.42 M/mm3 (4.30-5.90); White Blood Cell Count 11.23 K/mm3 (4.00-11.30)
[2024-01-12 04:14] LABS: Albumin, Blood 1.8 g/dL (3.4-5.0); Anion Gap 12 mmol/L (3-11); Blood Urea Nitrogen 26 mg/dL (8-24); CO2, Blood 23 mmol/L (21-32); Calcium, Blood 9.5 mg/dL (8.5-10.1); Chloride, Blood 107 mmol/L (98-108); Creatinine, Blood 0.63 mg/dL (0.60-1.20); Glomerular Filtration Rate 93 (60-); Glucose, Blood 177 mg/dL (70-99); Phosphorus, Blood 2.2 mg/dL (2.5-4.9); Potassium, Blood 3.9 mmol/L (3.5-5.5); Sodium, Blood 138 mmol/L (136-145)
--- NOTE | 2024-01-12 05:37 | NUR ---
SHIFT SUMMARY PT LYING IN BED, SLEEPING FOR FIRST TIME ENTIRE SHIFT. UPON AWAKENING, PT ALERT AND ORIENTED X 4 BUT MILDLY CONFUSED FAR HIS SURROUNDINGS AND HIS MEDICAL TREATMENT. AFEBRILE. HR AND BP STABLE. O2 SAT IN THE 90S ON RA. PRODUCTIVE COUGH- YELLOW SPUTUM. PT DENIES CHEST PAIN AND SOB. NO ABDOMINAL PAIN AND NAUSEA. PT EXPERIENCING SOME URGE INCONTINENCE. USES CALL LIGHT APPROPRIATELY FOR URINAL USE, BUT IT IS SOMETIMES TOO LATE. PT INQUIRED ABOUT OTHER OPTIONS. RED AREA ON COCCYX COVERED WITH FOAM DRESSING. PT LEFT WITH CALL LIGHT NEARBY.
[2024-01-12 08:58] VITALS: BP 94/78
[2024-01-12] MEDS ORDERED: Cholecalciferol 1000 Unit Tablet (=25MCG) PO SCH (09:00)
[2024-01-12] MEDS ORDERED: MethylPREDNISolone Sod Succ 125 MG Vial IV SCH (09:00)
[2024-01-12] MEDS ORDERED: Insulin Glargine-Yfgn 100 Unit/mL 3 ML SYR SC SCH ×2 (09:00→21:00)
[2024-01-12 11:26] VITALS: BP 97/55
[2024-01-12 15:45] VITALS: BP 92/54
[2024-01-12] MEDS ORDERED: Insulin Human Lispro 100 Units/ML 3ML Syringe SC SCH (16:30)
--- NOTE | 2024-01-12 18:06 | NUR ---
SHIFT SUMMARY PT A&Ox4, CALLS AND COMMUNICATES NEEDS APPROPRIATELY. PT CONFUSED AT TIMES, EASILEY REORIENTED, POOR HISTORIAN. BP SOFT WITH SBP 90'S, MAP> 65 & ASYMPTOMATIC; NO TELE, HR 70's, DENIES CP/PRESSURE. SpO2> 92% RA, DENIES SOB. 1 ASSIST w/ FWW. IN/CONTINENT URINE, URINAL AT BEDSIDE. 1 BM TODAY PRIOR TO SHOWER. NO C/O PAIN. NO OTHER EVENTS, WILL REPORT TO ONCOMING RN.
[2024-01-12 19:47] VITALS: BP 121/73
[2024-01-12] MEDS ORDERED: Doxycycline Hyclate 100 MG TAB PO SCH (21:00)
[2024-01-12] MEDS ORDERED: Lactobacil 2-S.Thermo-Bifido 1 1 Cap PO SCH (21:00)
[2024-01-13 03:59] VITALS: BP 138/79
--- NOTE | 2024-01-13 04:29 | NUR ---
Transfer- Gave bedside report to Medical floor RN. Wheeled patient up via WC with all of his belongings, including medical chart, insulin pens/vial, and his PRN cough syrup medication. Patient in stable condition at transfer. No other needs at this time.
[2024-01-13 07:20] VITALS: BP 144/74
[2024-01-13] MEDS ORDERED: PredniSONE 20 MG Tab PO SCH (09:00)
[2024-01-13] MEDS ORDERED: DOXY100 PO (12:58)
[2024-01-13] MEDS ORDERED: PRED20 PO (12:59)
--- NOTE | 2024-01-13 16:28 | NUR ---
DISCHARGE SUMMARY: A&Ox4. PLEASANT AND COOPERATIVE WITH CARE. CALLS APPROPRIATELY AND IS ABLE TO ADVOCATE NEEDS EFFECTIVELY. AMBULATES SBA c FWW. UTILIZES URINAL FOR VOIDING AND BATHROOM FOR BM. LBM TODAY. MEDS WHOLE WITH FLUIDS. POWERGLIDE HIRO. NO TELE. C/O LUNG PAIN WITH DEEP COUGHING. MEDICALLY APPROPRIATE FOR DISCHARGE, PER DR. TONY. MEDICATIONS FAXED TO [facility]. INSTRUCTED TO FOLLOW-UP WITH PRIMARY CARE PROVIDER, ONCOLOGIST AND MULTIMEDIA PRODUCTION ASSISTANT. CONTINUE VANCOCIN PO BID x7 DAYS AND PREDNISONE 40MG QD x5 DAYS. LEFT FLOOR VIA WHEELCHAIR, ESCORTED BY AND RN BARIATRIC WITH ALL BELONGINGS AND DISCHARGE PACKET. TRANSPORTATION PROVIDED BY VIA PRIVATE VEHICLE. .
== END 2024-01-13 15:01 | disposition home health service (06) | DRG 193 ==
LOC: ER 20:31 → ERHOLD 01-10 04:53 → PCU 01-10 11:29 → MEDS 01-13 03:00 → ENPENDDIS 01-13 12:59 → MEDS 01-13 15:01
PROVIDERS: Emergency Medicine; Family Medicine; Hospitalist; Internal Medicine; Student in an Organized Health Care Education/Training Program; ADMIT Internal Medicine
PROC: XW033E5 Introduction of Remdesivir Anti-infective into Peripheral Vein, Percutaneous Approach, New Technology Group 5 (ICD-10-PCS; principal; 2024-01-10)
DX: J18.9 Pneumonia, unspecified organism (principal); G92.8 Other toxic encephalopathy; U07.1 COVID-19; E87.1 Hypo-osmolality and hyponatremia; E11.40 Type 2 diabetes mellitus with diabetic neuropathy, unspecified; K21.9 Gastro-esophageal reflux disease without esophagitis; N40.0 Benign prostatic hyperplasia without lower urinary tract symptoms; I10 Essential (primary) hypertension; Z85.72 Personal history of non-Hodgkin lymphomas; Z85.46 Personal history of malignant neoplasm of prostate; Z85.038 Personal history of other malignant neoplasm of large intestine; Z92.21 Personal history of antineoplastic chemotherapy; Z92.3 Personal history of irradiation; Z95.0 Presence of cardiac pacemaker; Z90.49 Acquired absence of other specified parts of digestive tract; Z90.89 Acquired absence of other organs; Z98.890 Other specified postprocedural states; Z88.0 Allergy status to penicillin; Z88.5 Allergy status to narcotic agent; Z79.4 Long term (current) use of insulin; Z79.899 Other long term (current) drug therapy
CPT/HCPCS: 0241U; 36415; 51702; 51798; 71046; 71260; 80053; 80069; 80202; 81003; 82803; 82947; 83036; 83605; 83735; 84100; 84145; 84484; 85025; 85027; 87040; 92610; 93005; 93010; 93306; 94762; 96365-59; 96366-59; 96367-59; 97110; 97116; 97161; 97165; 97530; 97535; 99285-25; A9270; C1751; J0248; J0692; J1650; J1815; J2919; J3370; J7030; J7050; J7120; J7512; Q9967

== ENCOUNTER → 2024-10-04 | Outpatient (CLI) | payer OTHER ==
[~2024-10-04] MED LIST changes: +DOXY100 PO; +ENULOSE10 GM/156 PO; +PRED20 PO; +TRAM50 PO
== END | disposition home or self-care (01) ==
LOC: LAB SHORT 07:45 → LAB 07:45
DX: L60.2 Onychogryphosis (principal); B35.1 Tinea unguium
CPT/HCPCS: 88305; 88312